=== PATIENT | male | born 2000 | race Caucasian/White ===

== ENCOUNTER 2023-07-01 21:42 | Observation (INO) ==
[2023-07-01 22:31] LABS: Basophils # (auto) 0.05 K/uL (0.00-0.20); Basophils % (auto) 0.7 %; Eosinophils # (auto) 0.09 K/uL (0.00-0.50); Eosinophils % (auto) 1.2 %; Hemoglobin 15.8 g/dl (14.0-18.0); Immature Granulocytes # (auto) 0.02 K/uL (0.01-0.20); Immature Granulocytes % (auto) 0.3 %; Lymphocytes # (auto) 2.98 K/uL (1.20-3.40); Lymphocytes % (auto) 40.6 %; Mean Corpuscular Hemoglobin 31.5 pg (25.0-34.0); Mean Corpuscular Hgb Conc 34.3 g/dL (32.0-36.0); Mean Corpuscular Volume 91.6 fL (80.0-100.0); Mean Platelet Volume 10.1 fL (9.4-12.4); Monocytes # (auto) 0.63 K/uL (0.11-0.59); Monocytes % (auto) 8.6 %; Neutrophils # (auto) 3.57 K/uL (1.40-6.50); Neutrophils % (auto) 48.6 %; Platelet Count 222 K/uL (130-400); RDW Standard Deviation 39.8 fL (36.4-46.3); Red Blood Count 5.02 M/uL (4.70-6.10); White Blood Count 7.34 K/ul (4.8-10.8)
--- NOTE | 2023-07-01 22:32 | XRay Report ---
RIGHT ANKLE 3 VIEWS CLINICAL HISTORY: Right ankle injury. FINDINGS: 3 views of the right ankle are obtained. No prior studies are available for comparison at t he time of dictation. The skeletal structures are well mineralized. No fracture is seen. The ankle mo rtise is intact. There is no joint effusion. Soft tissue swelling is seen a round the ankle. IMPRESSION: Soft tissue swelling with no fracture identified. Electronically signed by: Boby Jones M.D. 07/01/2023 10:30 PM
--- NOTE | 2023-07-01 22:33 | XRay Report ---
RIGHT FOOT 3 VIEWS CLINICAL HISTORY: Right foot injury. FINDINGS: 3 views the right foot are obtained. No prior studies are available for comparison at the t janis of dictation. The skeletal structures are well mineralized. No fracture is seen. The joint spaces of the foot are maintained. Soft tissue swelling is seen around the ankle. IMPRESSION: No acute bony abnormality is identified. Electronically signed by: Boby Jones M.D. 07/01/2023 10:31 PM
[2023-07-01 22:40] LABS: Appearance Urine Clear (Clear); Bacteria Urine Automated Negative (Negative); Bilirubin Urine Negative (Negative); Blood Urine Negative (Negative); Color Urine Dark Yellow; Epithelial Cell Urine Auto 0-5 /lpf (0-5); Glucose Urine UA Negative (Negative); Ketones Urine Trace (Negative); Leukocyte Esterase Urine Negative (Negative); Nitrite Urine Negative (Negative); Protein Urine Trace (Negative); RBC Urine Automated 0-4 /hpf (0-4); Specific Gravity Urine 1.035 (1.000-1.030); Urobilinogen Urine Negative (Negative)
[2023-07-01 22:44] LABS: Albumin Globulin Ratio 2.6 (0.9-2); Albumin Level 4.6 gm/dl (3.4-5.0); BUN Creatinine Ratio 17.2 (10-20); Bilirubin,Total 1.1 mg/dl (0.2-1.0); Calcium 9.9 mg/dl (8.6-10.3); Creatinine Clr Calc Pharmacy 177.6 ml/min; Est GFR (Non-African American) 120.8 ml/min; Globulin 1.8 gm/dl (2.5-4.0); Potassium 3.6 mmol/L (3.5-5.1); Total Protein 6.4 gm/dl (6.0-8.3)
--- NOTE | 2023-07-02 00:08 | Emergency Department Note ---
Impression & Plan Leg abrasion, infected, Controlled type 1 diabetes mellitus, with long-term current use of insulin, Cellulitis of right lower leg ED Provider Note NAME: JAMES GAMBOA AGE: 23 SEX: M ARRIVES VIA: Walk-In INFORMANT: Patient ED PROVIDER(S): Ezekiel Stein MD CHIEF COMPLAINT: Leg infection/wound. Type 1 diabetes. 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 He reports he did not think much of it at the time he continued working in the day but towards the evening he noticed increasing pain. He gave it the rest of the weekend to see if it would improve but it has continued to worsen. He denies any fevers, chills, cough congestion, GI or symptoms. He reports his blood sugars have been higher than usual but nothing extremely out of the ordinary. Of note, the patient did arrive to emergency department during time of high volume, acuity and prolonged emergency department waiting times. Critical pathways initiated from triage. On my evaluation the patient is no acute distress, afebrile with stable vital signs. He appears clinically dry. Examination of the patient's right lower leg demonstrates a 3 cm superficial subacute wound with mild surrounding erythema and warmth without underlying fluctuance or discharge. There is moderate edema of the lower leg extending distally from this wound with scattered areas of ecchymosis. There is no crepitus. Capillary refill is within normal limits. Palpable pedal pulses. Upon further discussion with the patient he does feel that he had bruising centralized around his wound when the injury occurred and so agrees that the bruising likely may have migrated in the interval with gravity as he was not good about keeping his leg elevated. WBC, H/H and platelets within normal limits. Chemistry without metabolic acidosis. Electrolytes unremarkable. Total bilirubin 1.1, nonspecific and LFTs otherwise normal. ESR and CRP are within normal limits. UA with out evidence of infection. Trace ketones are noted however no metabolic acidosis. Plain films of right foot and ankle demonstrate soft tissue swelling without evidence of bony involvement. Given the patient's risk factors with type 1 diabetes in the setting of concern for polymicrobial infection the patient did agree with recommendation for admission for IV antibiotics and close monitoring. Blood cultures were obtained and treatment initiated with IV ceftriaxone and daptomycin. Case was discussed [place]. Renee, [facility] [place], who will evaluate the patient for admission. Further management per admitting team. Triage Nursing notes reviewed and agree them. Prior/outside medical records reviewed Vital Signs: reviewed Differential diagnosis: Cellulitis, abscess, MRSA infection, DVT, necrotizing fasciitis, dermatitis, drug eruption, allergic reaction, as well as other pathologies. ER treatment provided: See below. Diagnostics interpreted by me: ECG: None Cardiac Monitoring: An order for continuous cardiac monitoring was placed and demonstrated Laboratory studies: See below Imaging studies: See below Consultation(s): Case was discussed with Dr. Renee, [facility] [place], who will evaluate the patient for admission. 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 He reports he did not think much of it at the time he continued working in the day but towards the evening he noticed increasing pain. He gave it the rest of the weekend to see if it would improve but it has continued to worsen. He denies any fevers, chills, cough congestion, GI or symptoms. He reports his blood sugars have been higher than usual but nothing extremely out of the ordinary. ROS: See above HPI for pertinent positives & negatives. A total of 10 systems reviewed and were otherwise negative. VITALS:See Below PHYSICAL EXAMINATION: GENERAL: Awake, alert, well-appearing, in no distress HENT: Normocephalic, atraumatic. Oropharynx with dry mucous membranes and ot herwise unremarkable. EYES: Normal conjunctiva. Sclera non-icteric. NECK: Supple. No nuchal rigidity. FROM. No JVD. RESPIRATORY: Clear to auscultation. CARDIAC: Regular rate, normal rhythm. Extremities warm and well perfused. Pulses equal. ABDOMEN: Soft, non-distended. No tenderness to palpation. No rebound or guarding. No masses. RECTAL: Deferred. MUSCULOSKELETAL: Chest examination reveals no tenderness. The back is symmetrical on inspection without obvious abnormality. There is no CVA tenderne ss to palpation. No joint edema. LOWER EXTREMITIES: Right lower leg demonstrates a 3 cm superficial subacute wound with mild surrounding erythema and warmth without underlying fluctuance or discharge. There is moderate edema of the lower leg extending distally from this wound with scattered areas of ecchymosis. There is no crepitus. Capillary refill is within normal limits. Palpable pedal pulses. NEURO: Normal sensorium. No sensory or motor deficits noted. SKIN: No rash or jaundice noted. Ezekiel Stein MD Past Med/Surg History Medical History Depression Hypothyroidism Tobacco use Type 1 diabetes Surgical History History of tonsillectomy and adenoidectomy Family History Father Factor 5 Leiden mutation, heterozygous Psoriasis Sleep apnea Diabetes Grandmother (Maternal) Myocardial infarction COPD (chronic obstructive pulmonary disease) Cancer Grandfather (Paternal) COPD (chronic obstructive pulmonary disease) Myocardial infarction Type 1 diabetes mellitus Family/Other Suicide Type 1 diabetes mellitus Social History Smoking Status: Never smoker Hx Alcohol Use: Yes Preferred Language: Namibian Feels Safe at Home: No Allergies Allergies Allergy/AdvReac Type Severity Reaction Status Date / Time No Known Allergies AdvReac Unknown Verified 07/02/23 00:18 Home Meds Home Medications Medication Instructions Recorded Confirmed subcutaneous insulin pump (t:slim #1 ea 04/24/21 06/01/23 X2 Basal-IQ Insulin Pump) valacyclovir 500 mg tablet 500 mg PO BID PRN Cold Sores 01/26/23 07/02/23 insulin aspart U-100 100 unit/mL 0 unit continuous subcutaneous 07/02/23 07/02/23 subcutaneous solution (Novolog infusion CONTINOUS U-100 Insulin aspart) Previous Rx's Medication Instructions Recorded [employer] G6 Sensor (blood-glucose #9 ea 11/24/22 sensor) Dexcom G6 Transmitter #1 ea 11/24/22 (blood-glucose transmitter) levothyroxine 100 mcg tablet 100 mcg PO DAILY #30 tabs 01/26/23 acetone (urine) test (Ketostix #50 ea 01/28/23 strips) blood sugar diagnostic (OneTouch #360 ea 01/28/23 Verio test strips) glucagon 3 mg/actuation nasal 3 mg intranasal ONCE PRN 01/28/23 spray (Baqsimi) hypoglycemia #2 ea Results & Data (ED) Vital Signs Vital Signs - 24 hr 07/01/23 21:44 07/02/23 00:12 07/02/23 00:12 Temperature 36.6 C Temperature Source Temporal Artery Scan Pulse Rate 69 59 L Pulse Rate [Apical] 63 Pulse Rate from SpO2 Sensor Respiratory Rate 18 14 Respiratory Effort / Characteristics Non-Labored Respiratory Depth Normal Blood Pressure 152/88 H Blood Pressure [Right Arm] 133/73 Blood Pressure Mean 109 Blood Pressure Mean [Right Arm] 93 Pulse Oximetry 98 96 Oxygen Delivery Method Room Air Room Air Sepsis Recent Fever Within 48 Hours No Sepsis New/Unexplained Change in Mental Status No Sepsis Action Taken by Nursing No Action Required 07/02/23 00:11 07/02/23 00:20 07/02/23 00:30 Temperature Temperature Source Pulse Rate 63 65 58 L Pulse Rate [Apical] Pulse Rate from SpO2 Sensor 61 66 58 L Respiratory Rate 33 H 18 22 Respiratory Effort / Characteristics Respiratory Depth Blood Pressure Blood Pressure [Right Arm] Blood Pressure Mean Blood Pressure Mean [Right Arm] Pulse Oximetry 96 97 97 Oxygen Delivery Method Sepsis Recent Fever Within 48 Hours Sepsis New/Unexplained Change in Mental Status Sepsis Action Taken by Nursing 07/02/23 00:40 07/02/23 00:50 07/02/23 01:00 Temperature Temperature Source Pulse Rate 55 L 57 L 58 L Pulse Rate [Apical] Pulse Rate from SpO2 Sensor 54 L 57 L 59 L Respiratory Rate 21 20 20 Respiratory Effort / Characteristics Respiratory Depth Blood Pressure Blood Pressure [Right Arm] Blood Pressure Mean Blood Pressure Mean [Right Arm] Pulse Oximetry 96 96 96 Oxygen Delivery Method Sepsis Recent Fever Within 48 Hours Sepsis New/Unexplained Change in Mental Status Sepsis Action Taken by Nursing 07/02/23 01:10 Temperature Temperature Source Pulse Rate 58 L Pulse Rate [Apical] Pulse Rate from SpO2 Sensor 58 L Respiratory Rate 20 Respiratory Effort / Characteristics Respiratory Depth Blood Pressure Blood Pressure [Right Arm] Blood Pressure Mean Blood Pressure Mean [Right Arm] Pulse Oximetry 96 Oxygen Delivery Method Sepsis Recent Fever Within 48 Hours Sepsis New/Unexplained Change in Mental Status Sepsis Action Taken by Nursing Laboratory Data Attestation: I reviewed the patient's lab results. 07/01/23 21:58 07/01/23 21:58 Lab Results 07/01/23 07/01/23 07/01/23 Range/Units 21:58 21:58 22:00 WBC 7.34 (4.8-10.8) K/ul RBC 5.02 (4.70-6.10) M/uL Hgb 15.8 (14.0-18.0) g/dl Hct 46.0 (42.0-52.0) % MCV 91.6 (80.0-100.0) fL MCH 31.5 (25.0-34.0) pg MCHC 34.3 (32.0-36.0) g/dL RDW Std Deviation 39.8 (36.4-46.3) fL RDW Coeff of Darell 12.0 (11.5-14.5) % Plt Count 222 (130-400) K/uL MPV 10.1 (9.4-12.4) fL Immature Gran % (Auto) 0.3 % Neut % (Auto) 48.6 % Lymph % (Auto) 40.6 % Laurens % (Auto) 8.6 % Eos % (Auto) 1.2 % Baso % (Auto) 0.7 % Neut # (Auto) 3.57 (1.40-6.50) K/uL Lymph # (Auto) 2.98 (1.20-3.40) K/uL Laurens # (Auto) 0.63 H (0.11-0.59) K/uL Eos # (Auto) 0.09 (0.00-0.50) K/uL Baso # (Auto) 0.05 (0.00-0.20) K/uL Immature Gran # (Auto) 0.02 (0.01-0.20) K/uL ESR (0-15) mm/hr Sodium 139 (136-145) mmol/L Potassium 3.6 (3.5-5.1) mmol/L Chloride 103 (98-107) mmol/L Carbon Dioxide 30 (21-32) mmol/L Anion Gap 6 (3-11) BUN 15 (6-23) mg/dl Creatinine 0.87 (0.6-1.4) mg/dl Est Cr Clr Drug Dosing 177.6 ml/min Est GFR ( Amer) 140.0 ml/min Est GFR (Non-Af Amer) 120.8 ml/min BUN/Creatinine Ratio 17.2 (10-20) Glucose 151 H (70-99(Fasting)) mg/dl Calcium 9.9 (8.6-10.3) mg/dl Total Bilirubin 1.1 H (0.2-1.0) mg/dl AST 21 (13-39) U/L ALT 17 (7-52) U/L Alkaline Phosphatase 66 (34-104) U/L C-Reactive Protein (0-0.5) mg/dl Total Protein 6.4 (6.0-8.3) gm/dl Albumin 4.6 (3.4-5.0) gm/dl Globulin 1.8 L (2.5-4.0) gm/dl Albumin/Globulin Ratio 2.6 H (0.9-2) Urine Color Dark Yellow Urine Appearance Clear (Clear) Urine pH 6.0 (4.5-7.5) Ur Specific Bac[place] 1.035 H (1.000-1.030) Urine Protein Trace H (Negative) Urine Glucose (UA) Negative (Negative) Urine Ketones Trace H (Negative) Urine Blood Negative (Negative) Urine Nitrite Negative (Negative) Urine Bilirubin Negative (Negative) Urine Urobilinogen Negative (Negative) Ur Leukocyte Esterase Negative (Negative) Urine WBC (Auto) 1-5 (0-5) /hpf Urine RBC (Auto) 0-4 (0-4) /hpf U Hyaline Cast (Auto) 1-5 (0-5) /lpf U Epithel Cells (Auto) 0-5 (0-5) /lpf Urine Bacteria (Auto) Negative (Negative) 07/02/23 07/02/23 Range/Units 02:01 02:01 WBC (4.8-10.8) K/ul RBC (4.70-6.10) M/uL Hgb (14.0-18.0) g/dl Hct (42.0-52.0) % MCV (80.0-100.0) fL MCH (25.0-34.0) pg MCHC (32.0-36.0) g/dL RDW Std Deviation (36.4-46.3) fL RDW Coeff of Darell (11.5-14.5) % Plt Count (130-400) K/uL MPV (9.4-12.4) fL Immature Gran % (Auto) % Neut % (Auto) % Lymph % (Auto) % Laurens % (Auto) % Eos % (Auto) % Baso % (Auto) % Neut # (Auto) (1.40-6.50) K/uL Lymph # (Auto) (1.20-3.40) K/uL Laurens # (Auto) (0.11-0.59) K/uL Eos # (Auto) (0.00-0.50) K/uL Baso # (Auto) (0.00-0.20) K/uL Immature Gran # (Auto) (0.01-0.20) K/uL ESR 4 (0-15) mm/hr Sodium (136-145) mmol/L Potassium (3.5-5.1) mmol/L Chloride (98-107) mmol/L Carbon Dioxide (21-32) mmol/L Anion Gap (3-11) BUN (6-23) mg/dl Creatinine (0.6-1.4) mg/dl Est Cr Clr Drug Dosing ml/min Est GFR ( Amer) ml/min Est GFR (Non-Af Amer) ml/min BUN/Creatinine Ratio (10-20) Glucose (70-99(Fasting)) mg/dl Calcium (8.6-10.3) mg/dl Total Bilirubin (0.2-1.0) mg/dl AST (13-39) U/L ALT (7-52) U/L Alkaline Phosphatase (34-104) U/L C-Reactive Protein < 0.50 (0-0.5) mg/dl Total Protein (6.0-8.3) gm/dl Albumin (3.4-5.0) gm/dl Globulin (2.5-4.0) gm/dl Albumin/Globulin Ratio (0.9-2) Urine Color Urine Appearance (Clear) Urine pH (4.5-7.5) Ur Specific Bacova (1.000-1.030) Urine Protein (Negative) Urine Glucose (UA) (Negative) Urine Ketones (Negative) Urine Blood (Negative) Urine Nitrite (Negative) Urine Bilirubin (Negative) Urine Urobilinogen (Negative) Ur Leukocyte Esterase (Negative) Urine WBC (Auto) (0-5) /hpf Urine RBC (Auto) (0-4) /hpf U Hyaline Cast (Auto) (0-5) /lpf U Epithel Cells (Auto) (0-5) /lpf Urine Bacteria (Auto) (Negative) Administered Medications Discontinued Medications Ceftriaxone Sodium (Rocephin) 2,000 mg in 70 mls @ 140 mls/hr IV NOW STA Stop: 07/02/23 01:58 Last Admin: 07/02/23 02:11 Dose: 140 mls/hr Documented By: [facility] Imaging Data Radiologist's Impression: Ankle X-Ray 07/01/23 21:52 RIGHT ANKLE 3 VIEWS CLINICAL HISTORY: Right ankle injury. FINDINGS: 3 views of the right ankle are obtained. No prior studies are available for comparison at the time of dictation. The skeletal structures are well mineralized. No fracture is seen. The ankle mortise is intact. There is no joint effusion. Soft tissue swelling is seen a round the ankle. IMPRESSION: Soft tissue swelling with no fracture identified. Electronically signed by: Boby Jones M.D. 07/01/2023 10:30 PM Foot X-Ray 07/01/23 21:52 RIGHT FOOT 3 VIEWS CLINICAL HISTORY: Right foot injury. FINDINGS: 3 views the right foot are obtained. No prior studies are available for comparison at the time of dictation. The skeletal structures are well mineralized. No fracture is seen. The joint spaces of the foot are maintained. Soft tissue swelling is seen around the ankle. IMPRESSION: No acute bony abnormality is identified. Electronically signed by: Boby Jones M.D. 07/01/2023 10:31 PM Discharge Plan Visit Data Chief Complaint: Foot Injury/Pain Stated Complaint: RT FOOT PAIN BRUISING, TYPE 1 DIABETES ED Provider: Ezekiel Stein Discharge Problem: Leg abrasion, infected, Controlled type 1 diabetes mellitus, with long-term current use of insulin, Cellulitis of right lower leg Forms Stand Alone Forms: [employer] Prescriptions Prescriptions: No Action (DME) Dexcom G6 Sensor Device See Rx Instructions .ROUTE .MEDSUPPLY Qty: 9 3RF Rx Instructions: Change every 10 days (DME) Dexcom G6 Transmitter Device See Rx Instructions .ROUTE .MEDSUPPLY Qty: 1 3RF Rx Instructions: Change every 90 days valacyclovir 500 mg tablet 500 mg PO BID PRN (Reason: Cold Sores) levothyroxine 100 mcg tablet 100 mcg PO DAILY Qty: 30 11RF (DME) Ketostix Strip See Rx Instructions miscellaneous .MEDSUPPLY Qty: 50 5RF Rx Instructions: Check when high blood sugar > 240 for 4 hours Baqsimi 3 mg/actuation spray,non-aerosol 3 mg intranasal ONCE PRN (Reason: hypoglycemia) Qty: 2 5RF (DME) OneTouch Verio test strips Strip See Rx Instructions miscellaneous .MEDSUPPLY Qty: 360 3RF Rx Instructions: Check 4x a day (DME) t:slim X2 Basal-IQ Insulin [employer]eder Misc See Rx Instructions .ROUTE .MEDSUPPLY Qty: 1 Rx Instructions: As directed insulin aspart U-100 [Novolog U-100 Insulin aspart] 100 unit/mL solution 0 unit continuous subcutaneous infusion CONTINOUS Rx Instructions: For use in insulin pump 100 units daily subcut use as directed; Referrals Referrals: Uche Lobo MD [Primary Care Provider] -
[2023-07-02] MEDS ORDERED: cefTRIAXone SODIUM 2,000 MG/70 ML BAG IV STA (01:29)
[2023-07-02] MEDS ORDERED: DAPTOmycin 375 MG in SYRINGE 0 ML IV SCH (02:30)
--- NOTE | 2023-07-02 02:48 | History & Physical Report ---
Date of Service July 02, 2023 Assessment & Plan (1) Right foot injury: Plan: -[place] injury [place] farm, patient with past history of T1DM. -XR of foot and ankle without any acute bony abnormalities, just soft tissue swelling. -Worsening cause for concern for skin infection. -No signs of compartment syndrome currently. -Given Ceftriaxone and daptomycin in the ED. -Will switch to Cefepime for pseudomonas coverage and vancomycin given kidney function normal. -Can probably discharge if doing better on oral regimen. -Admit to med/surg (2) Controlled type 1 diabetes mellitus, with long-term current use of insulin: Plan: -History of T1DM with pump use. -Patient will use his own pump. Sugars have not been abnormally high or low for him recently. (3) Hypothyroidism: Plan: -Continue home levothyroxine. Plan 23 year old male w/ T1DM admitted for R foot infection for IV antibiotics. F/E/N/GI: T1DM diet. DVT Prophylaxis: None needed currently, patient ambulatory. Code status: Full Dispo: Med/surg obs. History of Present Illness Chief Complaint: Foot infection Primary Care Provider: Uche Lobo MD Lacho is a 23 year old male w/ a PmHx T1DM, hypothyroidism, vitamin D deficiency coming in for worsening swelling and redness to his R leg and foot. 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 Initially the area swelled and he had some pain. He thought it would get better with rest but it has since continued to swell along with some bruising and erythema. Patient relays the pain is the worst at the lateral aspect of his R leg mid calf level. He also has tenderness to touch at the ankle and foot. He says the pain is mostly a pressure sensation. He is still able to move his ankle and toes freely and does not have any sensation deficits. He did not do anything to help with the pain so far, no ibuprofen or tylenol use. He denies any fevers, chills, shortness of breath, chest pain, headache. In the ED he received Ceftriaxone 1 dose, daptomycin 1 dose. XR of R foot negative for acute abnormality, XR R ankle with soft tissue swelling with no fractures. blood work unremarkable, U/A unremarkable. Allergies Allergy/AdvReac Type Severity Reaction Status Date / Time No Known Allergies AdvReac Unknown Verified 07/02/23 00:18 Home Medications Medication Instructions Recorded Confirmed Type subcutaneous insulin pump (t:slim #1 ea 04/24/21 06/01/23 History X2 Basal-IQ Insulin Pump) Dexcom G6 Sensor (blood-glucose #9 ea 11/24/22 06/01/23 Rx sensor) Dexcom G6 Transmitter #1 ea 11/24/22 06/01/23 Rx (blood-glucose transmitter) levothyroxine 100 mcg tablet 100 mcg PO DAILY #30 tabs 01/26/23 07/02/23 Rx valacyclovir 500 mg tablet 500 mg PO BID PRN Cold Sores 01/26/23 07/02/23 History acetone (urine) test (Ketostix #50 ea 01/28/23 06/01/23 Rx strips) blood sugar diagnostic (OneTouch #360 ea 01/28/23 06/01/23 Rx Verio test strips) glucagon 3 mg/actuation nasal 3 mg intranasal ONCE PRN 01/28/23 07/02/23 Rx spray (Baqsimi) hypoglycemia #2 ea insulin aspart U-100 100 unit/mL 0 unit continuous subcutaneous 07/02/23 07/02/23 History subcutaneous solution (Novolog infusion CONTINOUS U-100 Insulin aspart) Past Med/Surg History Medical History Depression Hypothyroidism Tobacco use Type 1 diabetes Surgical History History of tonsillectomy and adenoidectomy Family History Father Factor 5 Leiden mutation, heterozygous Psoriasis Sleep apnea Diabetes Grandmother (Maternal) Myocardial infarction COPD (chronic obstructive pulmonary disease) Cancer Grandfather (Paternal) COPD (chronic obstructive pulmonary disease) Myocardial infarction Type 1 diabetes mellitus Family/Other Suicide Type 1 diabetes mellitus Social History Smoking Status: Never smoker Tobacco Type: Smokeless Tobacco (Dip or Chew) Hx Alcohol Use: Yes Alcohol type: beer Hx Substance Use: No Preferred Language: Mauritian Communication Ability: Effective Copy Technician Required: No Beliefs That Will Affect Care: None Current Living Situation Comment: With mom and step dad. Other Information That Helps Us Care for You: No Feels Safe at Home: Yes Safety Concerns: Feels Safe At This Time Assistive Devices: None Review of Systems Review of Systems: As per HPI. Physical Exam Constitutional: WD/WN, vitals as above Eyes: PERRL, conjunctivae normal, anicteric sclerae Respiratory: normal respiratory effort, lungs clear to auscultation Cardiovascular: Rate/Rhythm: regular rate and regular rhythm Heart Sounds: normal S1 and normal S2 Gastrointestinal (Abdomen): normal bowel sounds, soft, nontender, no hepatosplenomegaly Musculoskeletal: 5/5 strength at ankle. Skin: Abrasions to the R anterior baltazar, bruising on the lateral aspect and throughout the R ankle and foot. Erythema around the abrasions without any active discharge. Neurologic: Sensation at the R foot and ankle in tact. Psychiatric: A+Ox3, euthymic affect Results & Data Results & Data Vital Signs (Past 12 Hours) Vital Signs Temp Pulse Pulse Resp BP BP Pulse Ox 07/02/23 00:12 59 L 07/02/23 00:12 63 14 133/73 96 07/01/23 21:44 36.6 C 69 18 152/88 H 98 O2 Del Method 07/02/23 00:12 07/02/23 00:12 Room Air 07/01/23 21:44 Room Air Supervising Physician Co-Signing Physician Notes Attending addendum: I have physically seen this patient, have supervised the medical residents activities, and agree with the H&P unless as otherwise noted. Assessment and Plan: Diabetic foot/lower extremity infection- Secondary to injury on farm, working with animals Vancomycin IV per pharmacokinetic monitoring Cefepime 2 g IV every 12 hours Follow-up clinical examination closely Keep leg elevated Diabetes mellitus type 1- May continue to use his own pump with protocol of notifying nursing with coverage dose Check hemoglobin A1c Resident Activity Tracking Resident Involvement: Resident Care Provided Care Provided: Adult Hospital Medicine
[2023-07-02] MEDS ORDERED: VANCOMYCIN CONSULT ACTIVE PRN (04:55)
[2023-07-02] MEDS ORDERED: ACETAMINOPHEN 325 MG TAB PO PRN (04:55)
[2023-07-02] MEDS ORDERED: KETOROLAC TROMETHAMINE 15 MG/ML VIAL IM PRN (04:55)
[2023-07-02] MEDS: CEFEPIME 2,000 MG in SYRINGE 0 ML IV SCH ×3 (05:52→21:00)
[2023-07-02] MEDS: LEVOTHYROXINE SODIUM 100 MCG TABLET PO SCH (06:01)
--- NOTE | 2023-07-02 06:20 | Pharmacy Report ---
Pharmacy PK ABX Note - Date of Service July 02, 2023 - Assessment and Plan Assessment * Mr Muhammad is a 23 year old, diabetic M receiving vancomycin/cefepime for treatment of R foot infection. * BCx pending * Pt received one dose of daptomycin and one dose of ceftriaxone in the ED Plan Vancomycin * Loading dose: 2500 mg IV x 1 * Maintenance dose: 1500 mg IV every 12 hours * Regimen is predicted to achieve target AUC/LOGAN of 400-600 mg/L.hr * Will check a vanc level closer to steady-state if pt remains hospitalized and on vancomycin. Pharmacy will continue to follow and will adjust dose/frequency as necessary. Thank you. Pharmacy has transitioned to AUC monitoring for vancomycin. AUC/LOGAN is the preferred PK/PD target and is associated with decreased risk of nephrotoxicity compared to traditional trough targets.
[2023-07-02] MEDS ORDERED: CARBOHYDRATES FOR HYPOGLYCEMIA PO PRN (08:30)
[2023-07-02] MEDS ORDERED: GLUCAGON FOR INJ 1 MG VIAL IM PRN (08:30)
[2023-07-02] MEDS ORDERED: GLUCOSE 40% GEL 15 GM TUBE PO PRN (08:30)
[2023-07-02] MEDS ORDERED: DEXTROSE 50% 50 ML SYRINGE IV PRN (08:30)
[2023-07-02] MEDS ORDERED: INSULIN ASPART 100 UNITS/ML VIAL SC PRN (08:30)
[2023-07-02] MEDS ORDERED: GLUCOSE 10 TAB/TUBE PO PRN (08:30)
[2023-07-02] MEDS: INSULIN, Rapid-Acting PUMP SCH ×4 (08:40→21:05)
--- NOTE | 2023-07-02 09:36 | Hospitalist Progress Note ---
Date of Service July 02, 2023 Assessment & Plan (1) Right foot injury: Plan: -[place], patient with past history of T1DM. -XR of foot and ankle without any acute bony abnormalities, just soft tissue swelling. -Worsening cause for concern for skin infection. -No signs of compartment syndrome currently. -Given Ceftriaxone and daptomycin in the ED. -Will switch to Cefepime for pseudomonas coverage and vancomycin given kidney function normal. - (2) Controlled type 1 diabetes mellitus, with long-term current use of insulin: Plan: -History of T1DM with pump use. -Patient will use his own pump. Sugars have not been abnormally high or low for him recently. (3) Hypothyroidism: Plan: -Continue home levothyroxine. Plan 23 year old male w/ T1DM admitted for R foot infection for IV antibiotics. F/E/N/GI: T1DM diet. DVT Prophylaxis: None needed currently, patient ambulatory. Code status: Full Dispo: Med/surg obs. Admission and Anticipated Discharge Date Admission Date: July 02, 2023 Subjective pt does not feel much improved, but also has not worsened Physical Exam Physical Exam: area of erythema and small abrasion to anterior lower thigh, does have ecchymosis and swelling to ankle and foot Results & Data Results & Data Vital Signs (Past 12 Hours) Vital Signs Temp Pulse Pulse Pulse Resp BP BP 07/02/23 07:39 97.5 F L 56 L 20 114/72 07/02/23 04:20 54 L 13 07/02/23 04:10 60 14 07/02/23 04:00 53 L 12 07/02/23 03:50 58 L 15 07/02/23 03:44 57 L 15 07/02/23 02:30 60 19 07/02/23 02:20 62 22 07/02/23 02:10 58 L 20 07/02/23 02:00 60 18 07/02/23 01:50 58 L 20 07/02/23 01:40 57 L 15 07/02/23 01:30 55 L 16 07/02/23 01:20 63 19 07/02/23 04:35 97.9 F 58 L 16 07/02/23 04:28 66 16 133/77 07/02/23 01:10 58 L 20 07/02/23 01:00 58 L 20 07/02/23 00:50 57 L 20 07/02/23 00:40 55 L 21 07/02/23 00:30 58 L 22 07/02/23 00:20 65 18 07/02/23 00:11 63 33 H 07/02/23 00:12 59 L 07/02/23 00:12 63 14 07/01/23 21:44 97.9 F 69 18 152/88 H BP Pulse Ox O2 Del Method 07/02/23 07:39 99 Room Air 07/02/23 04:20 96 07/02/23 04:10 95 07/02/23 04:00 95 07/02/23 03:50 93 07/02/23 03:44 93 07/02/23 02:30 95 07/02/23 02:20 96 07/02/23 02:10 96 07/02/23 02:00 99 07/02/23 01:50 96 07/02/23 01:40 95 07/02/23 01:30 97 07/02/23 01:20 96 07/02/23 04:35 138/85 98 Room Air 07/02/23 04:28 96 Room Air 07/02/23 01:10 96 07/02/23 01:00 96 07/02/23 00:50 96 07/02/23 00:40 96 07/02/23 00:30 97 07/02/23 00:20 97 07/02/23 00:11 96 07/02/23 00:12 07/02/23 00:12 133/73 96 Room Air 07/01/23 21:44 98 Room Air PG Care Time/CCT Total # of Minutes Spent Total Time Spent with Patient: Total time spent is greater than 50% in coordination of care (as documented) at patient's floor/unit and/or counseling patient: Coding Level of Care Code None Diagnoses Right foot injury S99.921A Controlled type 1 diabetes mellitus, with long-term current use of insulin E10.9 Hypothyroidism E03.9
[2023-07-02] MEDS ORDERED: VANCOMYCIN HCL 2,500 MG in SODIUM CHLORIDE 0.9% 500 ML IV ONE (12:00)
[2023-07-02] MEDS: VANCOMYCIN HCL 1,500 MG in SODIUM CHLORIDE 0.9% 500 ML IV SCH (20:58)
--- NOTE | 2023-07-03 04:12 | Billing Data ---
Date of Service July 03, 2023 Coding Level of Care Code 78769 INT INP/OBS CARE
--- NOTE | 2023-07-03 04:12 | Billing Data ---
Date of Service July 03, 2023 Coding Level of Care Code 11543 INT INP/OBS CARE
[2023-07-03] MEDS: LEVOTHYROXINE SODIUM 100 MCG TABLET PO SCH (05:49)
[2023-07-03] MEDS: CEFEPIME 2,000 MG in SYRINGE 0 ML IV SCH ×2 (05:49→13:32)
[2023-07-03] MEDS: VANCOMYCIN HCL 1,500 MG in SODIUM CHLORIDE 0.9% 500 ML IV SCH (08:34)
[2023-07-03] MEDS: INSULIN, Rapid-Acting PUMP SCH ×2 (08:35→12:34)
[2023-07-03 09:10] LABS: Creatinine Clr Calc Pharmacy 215.5 ml/min; Est GFR (African American) > 150.0 ml/min; Est GFR (Non-African American) 131.3 ml/min
--- NOTE | 2023-07-03 14:18 | Discharge Summary ---
Date of Service July 03, 2023 Admission HPI Per Admitting Provider Lacho is a 23 year old male w/ a PmHx T1DM, hypothyroidism, vitamin D deficiency coming in for worsening swelling and redness to his R leg and foot. 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 Initially the area swelled and he had some pain. He thought it would get better with rest but it has since continued to swell along with some bruising and erythema. Patient relays the pain is the worst at the lateral aspect of his R leg mid calf level. He also has tenderness to touch at the ankle and foot. He says the pain is mostly a pressure sensation. He is still able to move his ankle and toes freely and does not have any sensation deficits. He did not do anything to help with the pain so far, no ibuprofen or tylenol use. He denies any fevers, chills, shortness of breath, chest pain, headache. In the ED he received Ceftriaxone 1 dose, daptomycin 1 dose. XR of R foot negative for acute abnormality, XR R ankle with soft tissue swelling with no fractures. blood work unremarkable, U/A unremarkable. Principal Diagnosis right leg cellulitis right foot and ankle contusion Discharge Exam area of cellulitis has improved foot swelling reduced ecchymosis persists as expected Discharge Data Allergies Allergy/AdvReac Type Severity Reaction Status Date / Time No Known Allergies AdvReac Unknown Verified 07/02/23 00:18 Consultations 07/02/23 02:56 ED Decision to Admit Stat Hospital Course (1) Right foot injury: -[place], patient with past history of T1DM. -XR of foot and ankle without any acute bony abnormalities, just soft tissue swelling. -Worsening cause for concern for skin infection. -No signs of compartment syndrome currently. -Given Ceftriaxone and daptomycin in the ED. -will switch to augmentin for another week po - (2) Controlled type 1 diabetes mellitus, with long-term current use of insulin: -History of T1DM with insulin pump use. (3) Hypothyroidism: -Continue home levothyroxine. Plan Code status: Full Total Time Total Time Spent Total Time Spent (In Minutes): less than 30 minutes were required to prepare discharge Discharge Plan Discharge Items Patient Disposition: Home - Self-Care Reason For Visit: SKIN INFECTION Discharge Diagnosis: cellultis Activity: Resume your previous activity Non-emergency contact: Primary Care Provider Call non-emergency contact if: your symptoms worsen Follow-up/Referrals: Uche Lobo MD [Primary Care Provider] - Michael Wallis DO [Resident] - 07/13/23 10:45 am Diet: Carb Consistent or DM2 Addtl Attending Provider Instructions: please keep the area of infection clear and dry, wash daily and apply antibiotic ointment, cover if working in dirty conditions otherwise leave open for your ankle and foot, the black and blue is consistent with tendon and ligament injry, take care with over use and wear supportive foot wear preferably high ankle laced boots or sneaker follow up with your family doctor Pending Studies at Discharge: Yes Studies:: blood cultures will continue to be surveyed Stand-Alone Forms: [employer] [facility], Smoking Cessation Medications and DC Order Prescriptions: New amoxicillin-pot clavulanate 875-125 mg tablet 1 tab PO BID Qty: 14 0RF Continued (DME) Dexcom G6 Sensor Device See Rx Instructions .ROUTE .MEDSUPPLY Qty: 9 3RF Rx Instructions: Change every 10 days (DME) Dexcom G6 Transmitter Device See Rx Instructions .ROUTE .MEDSUPPLY Qty: 1 3RF Rx Instructions: Change every 90 days valacyclovir 500 mg tablet 500 mg PO BID PRN (Reason: Cold Sores) levothyroxine 100 mcg tablet 100 mcg PO DAILY Qty: 30 11RF (DME) Ketostix Strip See Rx Instructions miscellaneous .MEDSUPPLY Qty: 50 5RF Rx Instructions: Check when high blood sugar > 240 for 4 hours Baqsimi 3 mg/actuation spray,non-aerosol 3 mg intranasal ONCE PRN (Reason: hypoglycemia) Qty: 2 5RF (DME) OneTouch Verio test strips Strip See Rx Instructions miscellaneous .MEDSUPPLY Qty: 360 3RF Rx Instructions: Check 4x a day (DME) t:slim X2 Basal-IQ Insulin [employer] Performance [employer] Misc See Rx Instructions .ROUTE .MEDSUPPLY Qty: 1 Rx Instructions: As directed insulin aspart U-100 [Novolog U-100 Insulin aspart] 100 unit/mL solution 0 unit continuous subcutaneous infusion CONTINOUS Rx Instructions: For use in insulin pump 100 units daily subcut use as directed; Discharge Orders: Discharge Order (Routine); Ordered 07/03/23 Ordered By: Markus Ontiveros Admission Data Admit Date/Time: 07/02/23 02:56 Attending Provider: Markus Ontiveros Admit Provider: Michael Wallis Primary Care Provider: Uche Lobo Other Providers: Marcos Renee Coding Level of Care Code 41746 IN/OBS DISCH 30 MIN/LESS Diagnoses Right foot injury S99.921A Controlled type 1 diabetes mellitus, with long-term current use of insulin E10.9 Hypothyroidism E03.9
== END 2023-07-03 15:43 | disposition home or self-care (01) ==
LOC: 3E 21:42 → ED 21:42 → SUATTDRO 07-02 02:56 → 3E 07-02 04:28